=== PATIENT | female | born 1980 | race Caucasian/White ===

== ENCOUNTER 2022-11-21 16:13 | Outpatient (CLI) | payer OTHER, SELFPAY | END 2022-11-21 16:14 | disposition home or self-care (01) | PROVIDERS: PCP Family Medicine; Visit Provider Family Medicine | DX: Z00.00 Encounter for general adult medical examination without abnormal findings (principal); Z13.6 Encounter for screening for cardiovascular disorders; Z11.59 Encounter for screening for other viral diseases | CPT/HCPCS: 80053; 80061; 86803 ==

== ENCOUNTER 2022-12-19 16:00 | Outpatient (CLI) | payer OTHER, SELFPAY | END 2022-12-19 16:01 | disposition home or self-care (01) | LOC: NFLDREF 12-20 09:46 | PROVIDERS: PCP Family Medicine; Referring Provider Family Medicine; Visit Provider Family Medicine | DX: R74.01 Elevation of levels of liver transaminase levels (principal) | CPT/HCPCS: 80076 ==

== ENCOUNTER 2023-05-09 07:57 | Outpatient (CLI) | payer OTHER, SELFPAY ==
--- NOTE | 2023-05-09 08:15 | CRLHL7_ITS ---
For Patients: As a result of the Cures Act, medical imaging exams and procedure reports are released immediately into your electronic medical record. You may view this report before your referring provider. If you have questions, please contact your health care provider. BILATERAL DIGITAL SCREENING MAMMOGRAM WITH COMPUTER-AIDED DETECTION WITH TOMOSYNTHESIS, 05/09/2023 CLINICAL HISTORY: Routine screening exam. COMPARISON: 10/12/2021 TECHNIQUE: Digital mammogram in CC and MLO projections including computer-aided detection (CAD). BREAST COMPOSITION: The breasts are heterogeneously dense, which may obscure small masses. FINDINGS: RIGHT Breast: Focal asymmetric density within the lateral breast 5 cm from the nipple. LEFT Breast: No suspicious findings. IMPRESSION: RIGHT breast asymmetry/mass. RECOMMENDATIONS: Additional mammographic views of the RIGHT breast including 3D spot compression cc/MLO. RIGHT breast ultrasound may also be required. [facility] will contact the patient. BI-RADS Category 0: Incomplete: Need Additional Imaging Evaluation and/or Prior Mammograms for Comparison Dictated by Dirk Ndiaye MD @ 05/13/2023 8:56:42 AM/CRL:[email or web address] PT/Dictated by: Dirk Ndiaye MD @ 05/13/2023 8:56:00 AM (Electronically Signed)
== END 2023-05-09 07:58 | disposition home or self-care (01) ==
LOC: MAMMO 07:59
PROVIDERS: PCP Family Medicine; Visit Provider Family Medicine
DX: Z12.31 Encounter for screening mammogram for malignant neoplasm of breast (principal); N63.10 Unspecified lump in the right breast, unspecified quadrant
CPT/HCPCS: 77063; 77067

== ENCOUNTER 2023-06-02 07:27 | Outpatient (CLI) | payer OTHER, SELFPAY ==
--- NOTE | 2023-06-02 07:45 | CRLHL7_ITS ---
For Patients: As a result of the Century Cures Act, medical imaging exams and procedure reports are released immediately into your electronic medical record. You may view this report before your referring provider. If you have questions, please contact your health care provider. RIGHT DIGITAL DIAGNOSTIC MAMMOGRAM WITH TOMOSYNTHESIS, 06/02/2023 INDICATION: Follow up a RIGHT breast asymmetry. TECHNIQUE: Spot-compression view of the RIGHT breast in the CC and MLO projection. Digital breast tomosynthesis used in interpretation. COMPARISON: May 09, 2023. FINDINGS: Breast composition: Heterogeneously dense. FINDINGS: The previously suggested asymmetry within the lateral RIGHT breast 5 cm from the nipple is superimposed breast tissue. No underlying mass. No architecture distortion. No suspicious microcalcifications. Ultrasound is not recommended at this time. Annual mammography is recommended. These findings were discussed in detail with the patient. IMPRESSION: Negative additional views of the RIGHT breast. Annual mammography recommended. BI-RADS Category 1: Negative. Dictated by: Nathan Aguilar MD @06/02/2023 9:31:44 AM/CRL:[email or web address] FELIZ/Dictated by: Nathan Aguilar MD @ 06/02/2023 9:31:00 AM (Electronically Signed)
== END 2023-06-02 07:28 | disposition home or self-care (01) ==
LOC: MAMMO 07:28
PROVIDERS: PCP Family Medicine; Visit Provider Family Medicine
DX: N63.10 Unspecified lump in the right breast, unspecified quadrant (principal); R92.8 Other abnormal and inconclusive findings on diagnostic imaging of breast
CPT/HCPCS: 77065; G0279

== ENCOUNTER 2024-11-15 15:48 | Outpatient (CLI) | payer OTHER, SELFPAY ==
[2024-11-17 20:11] LABS: HPV Source Endocervical; HPV, High Risk by TMA Not Detected
== END 2024-11-15 15:49 | disposition home or self-care (01) ==
PROVIDERS: PCP Family Medicine; Visit Provider Family Medicine
DX: R74.01 Elevation of levels of liver transaminase levels (principal); Z13.1 Encounter for screening for diabetes mellitus; Z13.6 Encounter for screening for cardiovascular disorders; Z12.4 Encounter for screening for malignant neoplasm of cervix; Z11.51 Encounter for screening for human papillomavirus (HPV)
CPT/HCPCS: 80053; 80061; 84146; 87624; 87625; 88141; 88142

== ENCOUNTER 2025-03-11 07:57 | Outpatient (CLI) | payer OTHER, SELFPAY ==
--- NOTE | 2025-03-11 08:15 | CRLHL7_ITS ---
For Patients: As a result of the Century Cures Act, medical imaging exams and procedure reports are released immediately into your electronic medical record. You may view this report before your referring provider. If you have questions, please contact your health care provider. INDICATION: BILATERAL SCREENING MAMMOGRAM, ASYMPTOMATIC 44 Y/O FEMALE COMPARISON: 06/02/2023, 05/09/2023, 10/12/2021 TECHNIQUE: Digital mammogram in CC and MLO projections including computer-aided detection (CAD) and tomosynthesis. BREAST COMPOSITION: The breasts are heterogeneously dense, which may obscure small masses. FINDINGS: No suspicious findings. ASSESSMENT: BI-RADS 1 Negative RECOMMENDATION: Annual screening mammogram. A lay language report of this examination will be provided to the patient. Dictated by: Dirk Ndiaye MD @ 03/11/2025 12:25:04 (Electronically Signed)
== END 2025-03-11 07:58 | disposition home or self-care (01) ==
LOC: MAMMO 07:57
PROVIDERS: PCP Family Medicine; Visit Provider Family Medicine
DX: Z12.31 Encounter for screening mammogram for malignant neoplasm of breast (principal); R92.333 Mammographic heterogeneous density, bilateral breasts
CPT/HCPCS: 77063; 77067